=== PATIENT | female | born 1960 | race African-American/Black ===

== ENCOUNTER 2018-01-05 19:47 | Emergency (ER) | payer SELFPAY ==
[~2018-01-05] VITALS: Ht 167.6 cm; Wt 81.1 kg
[2018-01-06] MEDS ORDERED: KETOROLAC 60MG/2ML VIAL IM ONE (01:30)
[2018-01-06] MEDS ORDERED: CYCLOBENZAPRINE 10MG TABLET PO ONE (01:30)
[2018-01-06 02:11] VITALS: BP 164/98
== END 2018-01-06 02:12 | disposition home or self-care (01) ==
LOC: ER 19:47
DX: S39.012A Strain of muscle, fascia and tendon of lower back, initial encounter (principal); I11.0 Hypertensive heart disease with heart failure; I50.9 Heart failure, unspecified; V89.2XXA Person injured in unspecified motor-vehicle accident, traffic, initial encounter; Y93.89 Activity, other specified; Y92.89 Other specified places as the place of occurrence of the external cause; Y99.8 Other external cause status
CPT/HCPCS: 96372; 99285; J1885